=== PATIENT | male | born 1965 | race African-American/Black ===

== ENCOUNTER 2020-05-15 09:30 | Emergency (ER) | payer BC, OTHER ==
--- NOTE | 2020-05-15 09:58 | EDM.PDOC ---
ED HPI GENERAL MEDICAL PROBLEM - General Chief Complaint: General Stated Complaint: COUGH, SOB Time Seen by Provider: 05/15/20 09:34 Source of Information: Reports: Patient, Old Records History Limitations: Reports: No Limitations - History of Present Illness INITIAL COMMENTS - FREE TEXT/NARRATIVE: 54-year-old male with no past medical history presenting with infectious symptoms. Patient reports a 5 to 6-day history of a cough, loss of sense of taste and smell, rhinorrhea, generalized weakness. There is no mention chest discomfort but he denies this to me. Denies chest discomfort, shortness of breath, fever, nausea, vomiting, diarrhea, hemoptysis, leg swelling, headache, neck stiffness, sore throat, difficulty handling secretions or swallowing. is ill with upper respiratory illness type symptoms. No recent travel or known coronavirus contacts. ROS: A 10-point review of systems was negative, except as noted in the HPI (or in the ROS section of this note). Past medical history: Reviewed, no additional pertinent history. Surgical history: Reviewed in system, no additional pertinent history. Social history: Reviewed in system, no additional pertinent history. Family history: Reviewed in system, no additional pertinent history. Limited physical examination was performed due to COVID pandemic, distance examination to prevent physician exposure and to preserve PPE. Vital signs reviewed. Nursing notes reviewed. Constitutional: Awake, alert, non-distressed. Head: Normocephalic, atraumatic. Eyes: No scleral icterus. NecK: Able to fully flex and extend. Fully rotates side to side. Cardiovascular: No extremity edema. Pulmonary: normal work of breathing, no accessory muscle use. Speaking in full sentences, handling secretions well. Abdomen/GI: nondistended Musculoskeletal: No deformities. Integumentary: Appropriate color for ethnicity, warm, dry, no pallor or opal dice, no rash. Neurologic: Alert, answering questions appropriately, normal speech, no facial droop, moving all extremities well. Psychiatric: Appropriate mood and affect, normal thought process. This patient was seen and evaluated during the 2019 SARS-CoV-2 novel coronavirus pandemic period. Community viral transmission is ongoing at time of this encounter and widespread universal testing is not currently available in our emergency department. Lower Chest Pain Score (Numeric/FACES): 8 - Related Data Allergies Allergy/AdvReac Type Severity Reaction Status Date / Time No Known Allergies Allergy Verified 05/15/20 09:48 Home Meds: Home Meds . [No Known Home Meds] 05/15/20 [History] Past Medical History - Past Health History Medical/Surgical History: Denies Medical/Surgical History Psychiatric History: Reports: None - Infectious Disease History Infectious Disease History: Reports: None Social & Family History - Tobacco Use Smoking Status *Q: Current Every Day Smoker Years of Tobacco use: 15 Packs/Tins Daily: 0.5 - Recreational Drug Use Recreational Drug Use: No ED ROS GENERAL - Review of Systems Review Of Systems: See Below ED EXAM, GENERAL - Physical Exam Exam: See Below EKG INTERPRETATION EKG Interpretation Comments: 12-Lead ECG Interpretation Acquired: 9:50 AM Rhythm: Sinus rhythm Rate: Sinus rhythm Anderson: Normal Intervals: Normal Ectopy: None Ischemic Changes: None apparent RV Strain: No obvious RV strain pattern. ST Segments/T-Waves: T wave inversions isolated to lead III Course - Vital Signs Text/Narrative:: Differential includes coronavirus infection, URI, pneumonia, sepsis, acute coronary syndrome, pulmonary embolism, etc. Patient appears nontoxic, is afebrile, not tachycardic, no hypoxia noted. No evidence of respiratory compromise. Denies chest discomfort or shortness of breath. Twelve-lead EKG shows no acute ischemia. Low suspicion for pulmonary embolism given no historical risk factors, no tachycardia, no chest discomfort or shortness of breath, no leg swelling or hemoptysis. Did note mild resting hypoxia but this is a well-known finding with coronavirus infection, patient has no cardiopulmonary complaints at this point. Patient does complain of feeling dehydrated but has moist mucous membranes, is not tachycardic or hypotensive, has no history of vomiting or diarrhea, and is not having any lightheadedness while ambulating. We discussed that laboratory work-up and IV fluids are not indicated at this point and we did encourage him to increase p.o. fluid intake in the meantime. Does not appear systemically ill. There is concern for coronavirus infection given the constellation of symptoms. Testing is performed at the [facility] respiratory clinic as we do not have the proper testing material here for patients that are not being admitted to the hospital. They will be discharged from the emergency department with directions to proceed to the respiratory clinic for testing. We discussed symptomatic treatment with [id number] Tylenol and Motrin and plenty of fluids. Can follow-up with a primary doctor as needed. Strict ED return precautions for shortness of breath or chest pain. Instructed to isolate from family members as she is able to and also to stay home from work with appropriate isolation duration discussed. All questions were answered prior to departure. Last Recorded V/S: Last Vital Signs Temp 35.9 C L 05/15/20 09:45 Pulse 105 H 05/15/20 09:45 Resp 17 05/15/20 09:45 BP 119/92 H 05/15/20 09:45 Pulse Ox 93 L 05/15/20 09:45 - Orders/Labs/Meds Orders: Active Orders 24 hr Category Date Time Status EKG 12 Lead [EKG Documentation Completion] [RC] STAT Care 05/15/20 09:39 Active Departure - Departure Time of Disposition: 10:26 Disposition: Home, Self-Care 01 Condition: Good Clinical Impression: Infection due to 2019 novel coronavirus - Discharge Information Instructions: COVID-19 Frequently Asked Questions, COVID-19, COVID-19: How to Protect Yourself and Others - CDC, Prevent the Spread of COVID-19 if You Are Sick - CDC Referrals: [facility] - [facility] Practice [Provider Group] - 1 Week (As needed.) Forms: ED Department Discharge Additional Instructions: You may have a coronavirus infection. Unfortunately we do not have the most thorough version of the test available here in the emergency department. We are only testing patients in the emergency department that are being admitted to the hospital or need emergency surgery. We will have you proceed to the respiratory clinic here on the hospital campus to have nasal testing for the coronavirus infection. In the meantime, you should assume that you have the coronavirus and you should wear your mask at all times. Be sure that you are wearing your mask over your face if you need to cough. You should wash your hands frequently and stay away from others. Go directly to the respiratory clinic for coronavirus testing. Stay at home and do not go to work until your symptoms have been present for at least 7 days, and you have been totally well for at least 72 hours. You can take [id number] Tylenol or ibuprofen as directed on the package for pain, fever, or headaches. Be sure you are drinking plenty of fluids. Follow-up with a family doctor with any concerns. Return to the emergency department immediately if you are feeling short of breath, having chest pain, or if you have any other new or concerning symptoms. Thank you for choosing the [facility] emergency department in [place] for your medical needs today. It was a pleasure caring for you. The following information is given to patients seen in the emergency department who are being discharged. This information is to outline your options for follow-up care. We provide all patients seen in our emergency department with a follow-up referral. The need for follow-up, as well as the timing and circumstances, are variable depending upon the specifics of your emergency department visit. If you don't have a primary care physician on staff, we will provide you with a referral. We always advise you to contact your personal physician following an emergency department visit to inform them of the circumstance of the visit and for follow-up with them and/or the need for any referrals to a consulting specialist. The emergency department will also refer you to a specialist when appropriate. This referral assures that you have the opportunity for follow-up care with a specialist. All of these measure are taken in an effort to provide you with optimal care, which includes your follow-up. Under all circumstances we always encourage you to contact your private physician who remains a resource for coordinating your care. When calling for follow-up care, please make the office aware that this follow-up is from your recent emergency room visit. If for any reason you are refused follow-up, please contact the [facility] Emergency Department at and asked to speak to the emergency department charge nurse. If you do not have a primary care physician that is caring for you, you can contact these clinics below to set up an appointment to establish care: [facility] Patri[facility] - Primary Care [address] [place] [id number] [address] [place] [address] Sepsis Event Note (ED) - Evaluation Sepsis Screening Result: No Definite Risk - Focused Exam Vital Signs: Vital Signs Temp Pulse Resp BP Pulse Ox 05/15/20 09:45 35.9 C L 105 H 17 119/92 H 93 L - My Orders Last 24 Hours: My Active Orders 05/15/20 09:39 EKG 12 Lead [EKG Documentation Completion] [RC] STAT - Assessment/Plan Last 24 Hours: My Active Orders 05/15/20 09:39 EKG 12 Lead [EKG Documentation Completion] [RC] STAT
== END 2020-05-15 10:34 | disposition home or self-care (01) ==
LOC: MW.ED 09:30
DX: U07.1 COVID-19 (principal); F17.210 Nicotine dependence, cigarettes, uncomplicated
CPT/HCPCS: 93005; 99283; 99284-25

== ENCOUNTER 2020-11-30 09:22 | Emergency (ER) | payer BC ==
[2020-11-30] MEDS ORDERED: Sodium Chloride 0.9% 10 ML Syringe FLUSH PRN (09:25)
[2020-11-30] MEDS ORDERED: Sodium Chloride 0.9% 2.5 ML Syringe FLUSH PRN (09:25)
--- NOTE | 2020-11-30 09:25 | EDM.PDOC ---
ED HPI GENERAL MEDICAL PROBLEM - General Stated Complaint: CHEST PAIN Time Seen by Provider: 11/30/20 09:23 Source of Information: Reports: Patient History Limitations: Reports: No Limitations - History of Present Illness INITIAL COMMENTS - FREE TEXT/NARRATIVE: 54-year-old male presents for chest pain. Patient has no PMHx. FHx of maternal RI and in 40s. +TOB use (dips, no smoking). Noted pain this morning in mid-substernal/mid-epigastric chest. Worse with deep inspiration although no SOB. No N/V. Pain worse with movement but not palpation. No h/o cardiac stress test. No meds [employer]. Notes he ate some "greens last night that disagreed with me". Epigastric Pain Score (Numeric/FACES): 7 - Related Data Allergies Allergy/AdvReac Type Severity Reaction Status Date / Time No Known Allergies Allergy Verified 11/30/20 09:29 Home Meds: Home Meds . [No Known Home Meds] 05/15/20 [History] Past Medical History - Past Health History Medical/Surgical History: Denies Medical/Surgical History Psychiatric History: Reports: None - Infectious Disease History Infectious Disease History: Reports: None ED ROS GENERAL - Review of Systems Review Of Systems: Comprehensive ROS is negative, except as noted in HPI. ED EXAM, GENERAL - Physical Exam Exam: See Below Exam Limited By: No Limitations General Appearance: Alert, WD/WN, No Apparent Distress Throat/Mouth: Normal Voice, No Airway Compromise Head: Atraumatic, Normocephalic Neck: Normal Inspection Respiratory/Chest: No Respiratory Distress, Lungs Clear, Normal Breath Sounds, No Accessory Muscle Use, Chest Non-Tender Cardiovascular: Normal Peripheral Pulses, Regular Rate, Rhythm, No Edema GI/Abdominal: Soft, Non-Tender Extremities: Normal Inspection Neurological: Alert, Normal Gait Psychiatric: Normal Affect, Normal Mood Skin Exam: Warm, Dry, Intact, Normal Color #1 Interpretation EKG Date: 11/30/20 Time: 09:20 Rhythm: NSR Rate (Beats/Min): 88 [place]: Normal P-Wave: Present QRS: Normal ST-T: Elevated (V2 V3 consistent with benign early repol) NC/PQ Interval: 158 Comparison: NA - No Prior EKG EKG Interpretation Comments: no overt ischemic changes Course - Vital Signs Last Recorded V/S: Last Vital Signs Temp 97.9 F 11/30/20 09:29 Pulse 88 11/30/20 10:28 Resp 18 11/30/20 09:58 BP 158/79 H 11/30/20 10:28 Pulse Ox 99 11/30/20 10:28 - Orders/Labs/Meds Orders: Active Orders 24 hr Category Date Time Status EKG Documentation Completion [RC] STAT Care 11/30/20 09:25 Active Sodium Chloride 0.9% [Saline Flush] Med 11/30/20 09:25 Active 10 ml FLUSH ASDIRECTED PRN Sodium Chloride 0.9% [Saline Flush] Med 11/30/20 09:25 Active 2.5 ml FLUSH ASDIRECTED PRN Saline Lock Insert [OM.PC] Stat Oth 11/30/20 09:25 Ordered Medication Orders Sodium Chloride (Saline Flush) 10 ml FLUSH ASDIRECTED PRN PRN Reason: Keep Vein Open Last Admin: 11/30/20 09:50 Dose: 10 ml Documented by: JONAS Sodium Chloride (Saline Flush) 2.5 ml FLUSH ASDIRECTED PRN PRN Reason: Keep Vein Open Last Admin: 11/30/20 09:50 Dose: 2.5 ml Documented by: JONAS Labs: Laboratory Tests 11/30/20 11/30/20 11/30/20 Range/Units 09:26 09:26 09:26 WBC 10.59 (4.0-11.0) K/uL RBC 5.13 (4.50-5.90) M/uL Hgb 15.9 (13.0-17.0) g/dL Hct 46.9 (38.0-50.0) % MCV 91.4 (80.0-98.0) fL MCH 31.0 (27.0-32.0) pg MCHC 33.9 (31.0-37.0) g/dL RDW Std Deviation 43.6 (28.0-62.0) fl RDW Coeff of Liz 13 (11.0-15.0) % Plt Count 189 (150-400) K/uL MPV 11.20 (7.40-12.00) fL Neut % (Auto) 70.3 (48.0-80.0) % Lymph % (Auto) 19.7 (16.0-40.0) % [place] % (Auto) 8.6 (0.0-15.0) % Eos % (Auto) 1.2 (0.0-7.0) % Baso % (Auto) 0.2 (0.0-1.5) % Neut # (Auto) 7.4 H (1.4-5.7) K/uL Lymph # (Auto) 2.1 (0.6-2.4) K/uL [place] # (Auto) 0.9 H (0.0-0.8) K/uL Eos # (Auto) 0.1 (0.0-0.7) K/uL Baso # (Auto) 0.0 (0.0-0.1) K/uL Nucleated RBC % 0.0 /100WBC Nucleated RBCs # 0 K/uL D-Dimer, Quantitative (0.0-0.50) mg/L FEU Sodium 136 (136-148) mmol/L Potassium 4.2 (3.5-5.1) mmol/L Chloride 99 (98-107) mmol/L Carbon Dioxide 26.4 (21.0-32.0) mmol/L BUN 14 (7.0-18.0) mg/dL Creatinine 1.4 H (0.8-1.3) mg/dL Est Cr Clr Drug Dosing 78.89 mL/min Estimated GFR (MDRD) > 60.0 ml/min Glucose 114 H (74-106) mg/dL Calcium 9.3 (8.5-10.1) mg/dL Magnesium 1.8 (1.8-2.4) mg/dL Total Bilirubin 0.7 (0.2-1.0) mg/dL AST 23 (15-37) IU/L ALT 45 (14-63) IU/L Alkaline Phosphatase 74 (46-116) U/L Troponin I < 0.050 (0.000-0.056) ng/mL B-Natriuretic Peptide 6 (<100) PG/ML Total Protein 8.5 H (6.4-8.2) g/dL Albumin 4.2 (3.4-5.0) g/dL Globulin 4.3 H (2.6-4.0) g/dL Albumin/Globulin Ratio 1.0 (0.9-1.6) Lipase 43 L (73-393) U/L 11/30/20 11/30/20 Range/Units 09:26 12:31 WBC (4.0-11.0) K/uL RBC (4.50-5.90) M/uL Hgb (13.0-17.0) g/dL Hct (38.0-50.0) % MCV (80.0-98.0) fL MCH (27.0-32.0) pg MCHC (31.0-37.0) g/dL RDW Std Deviation (28.0-62.0) fl RDW Coeff of Liz (11.0-15.0) % Plt Count (150-400) K/uL MPV (7.40-12.00) fL Neut % (Auto) (48.0-80.0) % Lymph % (Auto) (16.0-40.0) % [place] % (Auto) (0.0-15.0) % Eos % (Auto) (0.0-7.0) % Baso % (Auto) (0.0-1.5) % Neut # (Auto) (1.4-5.7) K/uL Lymph # (Auto) (0.6-2.4) K/uL [place] # (Auto) (0.0-0.8) K/uL Eos # (Auto) (0.0-0.7) K/uL Baso # (Auto) (0.0-0.1) K/uL Nucleated RBC % /100WBC Nucleated RBCs # K/uL D-Dimer, Quantitative 0.52 H (0.0-0.50) mg/L FEU Sodium (136-148) mmol/L Potassium (3.5-5.1) mmol/L Chloride (98-107) mmol/L Carbon Dioxide (21.0-32.0) mmol/L BUN (7.0-18.0) mg/dL Creatinine (0.8-1.3) mg/dL Est Cr Clr Drug Dosing mL/min Estimated GFR (MDRD) ml/min Glucose (74-106) mg/dL Calcium (8.5-10.1) mg/dL Magnesium (1.8-2.4) mg/dL Total Bilirubin (0.2-1.0) mg/dL AST (15-37) IU/L ALT (14-63) IU/L Alkaline Phosphatase (46-116) U/L Troponin I < 0.050 (0.000-0.056) ng/mL B-Natriuretic Peptide (<100) PG/ML Total Protein (6.4-8.2) g/dL Albumin (3.4-5.0) g/dL Globulin (2.6-4.0) g/dL Albumin/Globulin Ratio (0.9-1.6) Lipase (73-393) U/L Meds: Medications Generic Name Dose Route Start Last Admin Trade Name Freq PRN Reason Stop Dose Admin Sodium Chloride 10 ml 11/30/20 09:25 11/30/20 09:50 Saline Flush FLUSH 10 ml ASDIRECTED PRN Administration Keep Vein Open Sodium Chloride 2.5 ml 11/30/20 09:25 11/30/20 09:50 Saline Flush FLUSH 2.5 ml ASDIRECTED PRN Administration Keep Vein Open Discontinued Medications Generic Name Dose Route Start Last Admin Trade Name Freq PRN Reason Stop Dose Admin Aspirin 324 mg 11/30/20 09:42 11/30/20 09:50 Aspirin PO 11/30/20 09:43 324 mg ONETIME ONE Administration Al Hydroxide/Mg Hydroxide 15 0 ml 11/30/20 12:17 11/30/20 12:23 ml/ Lidocaine HCl 5 ml PO 11/30/20 12:18 1 each ONETIME ONE Administration Famotidine 20 mg 11/30/20 09:43 11/30/20 09:49 Pepcid IVPUSH 11/30/20 09:44 20 mg ONETIME ONE Administration Iopamidol 100 ml 11/30/20 11:17 11/30/20 11:17 Isovue Multipack-370 (76%) IVPUSH 11/30/20 11:18 100 ml ONETIME ONE Administration Morphine Sulfate 4 mg 11/30/20 10:31 11/30/20 10:51 Morphine IVPUSH 11/30/20 10:32 4 mg ONETIME ONE Administration - Re-Assessments/Exams Free Text/Narrative Re-Assessment/Exam: 11/30/20 10:31 Patient's pain poorly controlled, worsening. Morphine 4mg added. D-dimer mildly elevated; CTA PE study ordered 11/30/20 12:57 CTA chest is unremarkable. GI cocktail trialed for pain relief. We will follow-up reassessment and repeat troponin and disposition accordingly. 11/30/20 13:13 Patient's pain level is 0 out of 10. His repeat troponin is negative. Will discharge patient home with short course of GI medication for symptomatic relief, but I do recommend cardiology follow-up considering his risk factors. Return precautions were discussed at length with patient and . They are agreeable to plan. Departure - Departure Time of Disposition: 13:14 Disposition: Home, Self-Care 01 Condition: Good Clinical Impression: Chest pain Qualifiers: Chest pain type: unspecified Qualified Code(s): R07.9 - Chest pain, unspecified - Discharge Information Instructions: Nonspecific Chest Pain, Adult Referrals: Sulaiman Bridges MD [Primary Care Provider] - Additional Instructions: Your emergency department work-up is negative for signs of damage to your heart muscle or a blood clot in the lungs. Your lab results and CT imaging results will be in your discharge paperwork. It is often difficult for us to definitively diagnose the cause of chest pain in the emergency department. Since he did respond to gastrointestinal medications, I have sent a prescription for a stomach acid reducing pill that you can try over the next couple of weeks to see if this helps with your chest pain. That being said, I do recommend that you follow-up with a coding advisor as your age and family history and tobacco use please see you at an increased risk of cardiovascular disease. Information for local cardiology is provided below: [facility] [address] [place] [id number] The following information is given to patients seen in the emergency department who are being discharged to home. This information is to outline your options for follow-up care. We provide all patients seen in our emergency department with a follow-up referral. The need for follow-up, as well as the timing and circumstances, are variable de pending upon the specifics of your emergency department visit. If you don't have a primary care physician on staff, we will provide you with a referral. We always advise you to contact your personal physician following an emergency department visit to inform them of the circumstance of the visit and for follow-up with them and/or the need for any referrals to a consulting specialist. The emergency department will also refer you to a specialist when appropriate. This referral assures that you have the opportunity for follow-up care with a specialist. All of these measure are taken in an effort to provide you with optimal care, which includes your follow-up. Under all circumstances we always encourage you to contact your private physician who remains a resource for coordinating your care. When calling for follow-up care, please make the office aware that this follow-up is from your recent emergency room visit. If for any reason you are refused follow-up, please contact the [facility] Emergency Department at and asked to speak to the emergency department charge nurse. Please follow up with your primary care physician. If you do not have a primary care physician, see below: [facility] [address] [place] [id number] [facility] [address] [place] [id number] [facility] [address] [place] [id number] Sepsis Event Note (ED) - Focused Exam Vital Signs: Vital Signs Temp Pulse Resp BP Pulse Ox 11/30/20 10:28 88 158/79 H 99 11/30/20 09:58 85 18 125/92 H 99 11/30/20 09:54 89 175/102 H 98 11/30/20 09:29 97.9 F 89 22 H 181/95 H 98 11/30/20 09:27 87 181/99 H 100 - My Orders Last 24 Hours: My Active Orders 11/30/20 09:25 EKG Documentation Completion [RC] STAT Sodium Chloride 0.9% [Saline Flush] 10 ml FLUSH ASDIRECTED PRN Sodium Chloride 0.9% [Saline Flush] 2.5 ml FLUSH ASDIRECTED PRN Saline Lock Insert [OM.PC] Stat - Assessment/Plan Last 24 Hours: My Active Orders 11/30/20 09:25 EKG Documentation Completion [RC] STAT Sodium Chloride 0.9% [Saline Flush] 10 ml FLUSH ASDIRECTED PRN Sodium Chloride 0.9% [Saline Flush] 2.5 ml FLUSH ASDIRECTED PRN Saline Lock Insert [OM.PC] Stat
[2020-11-30] MEDS ORDERED: Aspirin 81 MG Tab.Chew PO ONE (09:42)
[2020-11-30] MEDS ORDERED: Famotidine 20 MG/2 ML SDV IVPUSH ONE (09:43)
[2020-11-30 09:59] LABS: BLOOD UREA NITROGEN,BUN 14 mg/dL (7.0-18.0); CARBON DIOXIDE,CO2 26.4 mmol/L (21.0-32.0); CHLORIDE,CL 99 mmol/L (98-107); GLUCOSE RANDOM 114 mg/dL (74-106); LIPASE 43 U/L (73-393); POTASSIUM,K 4.2 mmol/L (3.5-5.1); SODIUM,NA 136 mmol/L (136-148)
--- NOTE | 2020-11-30 10:13 | CR ---
INDICATION: Chest pain TECHNIQUE: Chest 1 view COMPARISON: None FINDINGS: Cardiovascular and mediastinum: Heart size and vasculature are normal in caliber and appearance. Lungs and pleural spaces: Lungs are clear. No sign of infiltrate or mass. No sign of pleural effusion. No pneumothorax. Bones and soft tissues: No significant findings. IMPRESSION: No acute or significant findings. Dictated by Eddie Dunlap MD @ Nov 30 2020 10:10AM Signed by Dr. Eddie Dunlap @ Nov 30 2020 10:11AM
[2020-11-30] MEDS ORDERED: Morphine 4 MG/ML Syringe IVPUSH ONE (10:31)
[2020-11-30] MEDS ORDERED: Iopamidol 755 MG/ML 500 ML Multipack Bottle IVPUSH ONE (11:17)
--- NOTE | 2020-11-30 12:02 | CT ---
INDICATION: Chest pain. Elevated D-dimer. TECHNIQUE: CT chest PE was acquired with 100 cc Isovue 370 IV contrast. COMPARISON: None. FINDINGS: Heart and vasculature: No sign of [id number] or central pulmonary embolism. Heart size is normal. Thoracic aorta and pulmonary artery are normal in caliber. Lungs and pleural: No suspicious nodules or infiltrates. Moderate bibasilar atelectasis. No pleural effusions, pleural thickening, or pneumothorax. Lymph nodes/mediastinum: No mediastinal, hilar, or axillary adenopathy. Thyroid gland is normal. Chest wall: No masses. Upper abdomen: Normal. Bones: Unremarkable for age. IMPRESSION: No sign of pulmonary embolism or pneumonia. Moderate bibasilar atelectasis. No other finding to explain chest pain. Please note that all CT scans at this facility use dose modulation, iterative reconstruction, and/or weight-based dosing when appropriate to reduce radiation dose to as low as reasonably achievable. Dictated by Eddie Dunlap MD @ Nov 30 2020 11:52AM Signed by Dr. Eddie Dunlap @ Nov 30 2020 12:01PM
[2020-11-30] MEDS ORDERED: Alum Hydrox/Mag Hydrox/Simeth 15 ML, Lidocaine 2% 5 ML PO ONE ×2 (12:17)
== END 2020-11-30 13:33 | disposition home or self-care (01) ==
LOC: MW.ED 09:22
DX: R07.9 Chest pain, unspecified (principal); Z72.0 Tobacco use
CPT/HCPCS: 36415; 71045; 71275; 80053; 83690; 83735; 83880; 84484; 85025; 85379; 93005; 96374; 96375; 99285; A9270; J2270; J3490; Q9967; 93010

== ENCOUNTER 2024-03-15 07:00 | Day surgery (SDC) | payer BC ==
[2024-03-15] MEDS: Lactated Ringers 1,000 ML IV SCH (07:24)
[2024-03-15] MEDS ORDERED: propofoL 100 ML ONE (07:51)
[2024-03-15] MEDS ORDERED: Water For Injection, Sterile 20 ML ONE (08:06)
[2024-03-15] MEDS ORDERED: dexmedeTOMIDine HCl 200 MCG/2 ML SDV ONE (08:06)
[2024-03-15] MEDS ORDERED: Magnesium Sulfate (4.06 MEQ/ML) 5 GM/10 ML SDV ONE (08:06)
[2024-03-15] MEDS ORDERED: Ketamine 500 mg/10 ML MDV ONE (08:41)
[2024-03-15] MEDS ORDERED: Lidocaine 2% 5 ML SDV ONE (08:50)
[2024-03-15] MEDS ORDERED: Phenylephrine HCl In 0.9% NaCl 1 MG/10 ML Syringe ONE (08:53)
[2024-03-15] MEDS ORDERED: Lactated Ringers 1,000 ML IV SCH (09:30)
== END 2024-03-15 10:00 | disposition home or self-care (01) ==
LOC: MW.SDS 07:00
PROVIDERS: ATTEND Surgery
DX: Z12.11 Encounter for screening for malignant neoplasm of colon (principal); K57.30 Diverticulosis of large intestine without perforation or abscess without bleeding; I10 Essential (primary) hypertension; E11.9 Type 2 diabetes mellitus without complications; F32.A Depression, unspecified; E78.5 Hyperlipidemia, unspecified; N52.9 Male erectile dysfunction, unspecified; Z79.899 Other long term (current) drug therapy
CPT/HCPCS: 45378; 82947; J2371; J2704; J3475; J3490; J7120; 00812

== ENCOUNTER 2025-08-23 12:37 | Emergency (ER) | payer OTHER, BC | END 2025-08-23 13:53 | disposition home or self-care (01) | LOC: MW.ED 12:37 | DX: S16.1XXA Strain of muscle, fascia and tendon at neck level, initial encounter (principal); S09.90XA Unspecified injury of head, initial encounter; I10 Essential (primary) hypertension; E11.22 Type 2 diabetes mellitus with diabetic chronic kidney disease; I12.9 Hypertensive chronic kidney disease with stage 1 through stage 4 chronic kidney disease, or unspecified chronic kidney disease; N18.9 Chronic kidney disease, unspecified; Z79.899 Other long term (current) drug therapy; V68.5XXA Driver of heavy transport vehicle injured in noncollision transport accident in traffic accident, initial encounter; Y93.89 Activity, other specified; Y99.0 Civilian activity done for income or pay | CPT/HCPCS: 70450; 72125; 99284; A9270; 99283 ==